=== PATIENT | female | born 1980 | race Caucasian/White ===

== ENCOUNTER 2016-05-17 19:58 | Emergency (ER) | payer OTHER ==
[~2016-05-17] VITALS: Ht 157.5 cm; Wt 64.0 kg
[~2016-05-17 19:58] MED LIST: PRENAT PO
[2016-05-17 20:03] VITALS: Ht 157.5 cm; Wt 64.0 kg
--- NOTE | 2016-05-18 00:39 | ERD ---
ER Documentation Chief Complaint Date/Time DATE: 05/18/16 TIME: 00:37 Chief Complaint abscess left groin HPI 36 year old female presents with CC of vaginal itching and discharge x 1 week. Patient reports that the discharge and green and frothy in appearance. She denies pelvic pain, dysuria, hematuria, and fevers. In addition she reports a "bump" on her vagina that is painful to touch. She is sexually active with her spouse, she does not use condoms. She states that she had a vaginal delivery 5 months ago and is currently breast feeding. She has not tried any medications for relief of her symptoms. She denies Hx of diabetes. ROS All systems reviewed and are negative except as per history of present illness. Medications Home Meds Active Scripts Metronidazole* (Metrogel*) 0.75% -45 Gram Gel, 1 APPLIC TOP BID for 5 Days, #1 TUB Prov:aKity Mejía PA-C 05/18/16 Cephalexin* (Keflex*) 500 Mg Capsule, 500 MG PO QID for 7 Days, CAP Prov:Kaity Mejía PA-C 05/18/16 Reported Medications Multivit/Min/Fol Ac/Iron/Pren* ( S*) 1 Tab Tab, 1 TAB PO DAILY, TAB 12/25/15 Allergies Allergies: Coded Allergies: No Known Drug Allergy (Verified Allergy, Unknown, 12/25/12) PMhx/Soc Medical and Surgical Hx: pt denies Medical Hx, pt denies Surgical Hx History of Surgery: Yes (gall bladder removal) Anesthesia Reaction: No Hx Neurological Disorder: No Hx Respiratory Disorders: No Hx Cardiac Disorders: No Hx Psychiatric Problems: No Hx Miscellaneous Medical Probl: No Hx Alcohol Use: No Hx Substance Use: No Hx Tobacco Use: No Smoking Status: Never smoker Physical Exam Vitals Physical Exam GENERAL: Nontoxic appearing. No acute distress and nontoxic. LUNGS: CTAB. No accessory muscle use. No rhonchi, no crackles, no stridor. No signs or symptoms of respiratory distress. No accessory muscle use, no retractions. HEART: Regular rate and rhythm. No murmurs, clicks, rubs or gallops. ABDOMEN/PELVIS: no guarding. non-distended. Soft and nontender. No suprapubic or adnexal tenderness. : There is a firm and tender 2cm nodular area over posterior end of the labia majora, with mild fluctuance. No active discharge or bleeding. The vaginal canal has yellow mucoid discharge, the cervix is closed and there is yellow mucoid discharge from the os, there is no cervical motion tenderness or adnexal masses. Procedures/MDM Patient presented with two complaints, one of them being a painful nodular area her labia, on exam it appeared that the area she was describing is likely an early bartholin cyst. However, currently there area was firm with very mild fluctuance. It did not appear to be suitable for incision and drainage. I told her that I would be treated her with oral ABx, and that if it does not improve then she should follow-up with her OBGYN for possible placement of a word catheter. In addition to this complaint she also complain of diffuse vaginal discharge and pruritus. On exam she had think yellow mucoid discharge both in the vaginal canal and around the cervix. I took a sample of the discharge and sent it for a wet mount. In addition I did a gonorrhea and chlamydia culture. I treated the patient for bacterial vaginosis based on clinical presentation. I told her that if the results of the culture came back positive then I would call her to add an additional prescription. Since she is , I chose to treat her with topical Metronidazole. Wet Mount: no clue cells and no motile flagella (negative) G/C culture: negative On exam patient had no cervical motion tenderness. She denies dysuria and is not . She is afebrile and in NAD. I have low suspicion for PID, gonorrhea, chlamydia, syphilis, UTI, ectopic , ovarian torsion, and sepsis. Patient is stable for discharge and outpatient management. Advised to follow-up with PCP or OBGYN is 1-2 days. Departure Diagnosis: Primary Impression: Vaginal discharge Additional Impression: Vaginal pruritus Condition: Stable Kaity Mejía PA-C May 18, 2016 00:39
[2016-05-18] MEDS ORDERED: METGEL45 TOP (00:40)
[2016-05-18] MEDS ORDERED: CEPH-443 PO (00:40)
[2016-05-18 00:43] VITALS: BP 113/71; PULSE 81; RESP 18; TEMP 97.9
== END 2016-05-18 01:02 | disposition home or self-care (01) ==
LOC: FTE 19:58
DX: N89.8 Other specified noninflammatory disorders of vagina (principal); L29.2 Pruritus vulvae
CPT/HCPCS: 87070; 87210; Z7502; 99284

== ENCOUNTER 2017-10-02 08:14 | Day surgery (SDC) | END 2017-10-02 12:48 | disposition home or self-care (01) ==

== ENCOUNTER 2018-12-02 17:52 | Outpatient (CLI) | payer OTHER ==
[~2018-12-02] VITALS: Ht 162.6 cm; Wt 69.9 kg
[~2018-12-02 17:52] MED LIST changes: +PNV11TAB PO; -PRENAT PO
[2018-12-02 19:04] VITALS: BP 105/65; PULSE 81; RESP 18; Ht 162.6 cm; Wt 69.9 kg
== END 2018-12-02 21:35 | disposition home or self-care (01) ==
LOC: OBT 17:52 → L-D 17:55 → OBT 21:35
PROVIDERS: ATTEND Obstetrics & Gynecology
DX: O62.9 Abnormality of forces of labor, unspecified (principal); Z3A.29 29 weeks gestation of pregnancy
CPT/HCPCS: 76817; 76818; 81001; 81003; 87086; Z7500; G0463

== ENCOUNTER 2019-02-11 22:20 | Inpatient (IN) | payer OTHER ==
[~2019-02-11] VITALS: Ht 165.1 cm; Wt 72.4 kg
[2019-02-11 22:32] VITALS: BP 116/73; PULSE 90; RESP 18; Ht 165.1 cm; Wt 72.4 kg
[2019-02-12] MEDS ORDERED: LACTATED RINGER'S 1,000 ML IV PRN (01:18)
[2019-02-12] MEDS ORDERED: LACTATED RINGER'S 1,000 ML IV SCH (01:18)
[2019-02-12] MEDS ORDERED: OXYTOCIN 30 UNITS/LR 500 ML IV PRN ×3 (01:30→13:00)
[2019-02-12] MEDS ORDERED: IBUPROFEN 600 MG TAB PO PRN (01:30)
[2019-02-12] MEDS ORDERED: BUTORPHANOL 2 MG INJ IV PRN (01:30)
[2019-02-12] MEDS ORDERED: METHYLERGONOVINE 0.2 MG INJ IM PRN ×3 (01:30→13:00)
[2019-02-12] MEDS ORDERED: MISOPROSTOL 200 MCG TAB PR PRN ×3 (01:30→13:00)
[2019-02-12] MEDS ORDERED: OXYTOCIN 30 UNITS/LR 500 ML IV SCH ×3 (01:30→09:30)
[2019-02-12] MEDS ORDERED: MINERAL OIL LIGHT 10 ML VIAL TOP PRN (01:30)
[2019-02-12] MEDS ORDERED: LIDOCAINE 1% (MPF) 30 ML INJ INJ PRN (01:30)
[2019-02-12] MEDS ORDERED: CARBOPROST 250 MCG INJ IM PRN ×3 (01:30→13:00)
[2019-02-12] MEDS ORDERED: FENTAnyl 2MCG/ML-ROPIV 0.2% 100 ML ONE (05:45)
[2019-02-12] MEDS ORDERED: NALOXONE (0.4 MG/ML) INJ IV PRN (06:00)
[2019-02-12] MEDS ORDERED: ONDANSETRON 4 MG INJ IV PRN (06:00)
[2019-02-12] MEDS ORDERED: ACETAMINOPHEN 1000MG/100ML IV 100 ML IVPB ONE (06:00)
[2019-02-12] MEDS ORDERED: FENTAnyl 2MCG/ML-ROPIV 0.2% 100 ML BAG EPI SCH (06:00)
[2019-02-12] MEDS ORDERED: DIPHENHYDRAMINE 50 MG INJ IV PRN (06:00)
[2019-02-12] MEDS ORDERED: URSODIOL 300 MG CAP PO SCH (09:00)
[2019-02-12] MEDS ORDERED: DIPHENHYDRAMINE 25 MG CAP PO PRN (09:30)
[2019-02-12] MEDS ORDERED: ZOLPIDEM 5 MG TAB PO PRN ×2 (11:30→13:00)
[2019-02-12] MEDS ORDERED: WITCH HAZEL/GLYCERIN PAD PR PRN ×2 (11:30→13:00)
[2019-02-12] MEDS ORDERED: LANOLIN HPA 1 PKT TOP PRN ×2 (11:30→13:00)
[2019-02-12] MEDS ORDERED: OXYCODONE/ASPIRIN (4.88/325) TAB PO PRN ×4 (11:30→13:00)
[2019-02-12] MEDS ORDERED: BENZOCAINE 20% 56 ML SPRAY TOP PRN ×2 (11:30→13:00)
[2019-02-12] MEDS: IBUPROFEN 600 MG TAB PO SCH ×3 (12:00→23:48)
[2019-02-12 12:35] VITALS: BP 112/55; PULSE 72; RESP 18
[2019-02-12 16:03] VITALS: BP 111/60; PULSE 67; RESP 18
[2019-02-12] MEDS ORDERED: IBUPROFEN 600 MG TAB PO SCH (18:00)
[2019-02-12 19:50] VITALS: BP 117/66; PULSE 64; RESP 19
[2019-02-12] MEDS ORDERED: SENNA/DOCUSATE NA (8.6MG/50MG) TAB PO SCH (21:00)
[2019-02-12] MEDS: SENNA/DOCUSATE NA (8.6MG/50MG) TAB PO SCH (21:20)
[2019-02-13 03:25] VITALS: BP 107/61; PULSE 71; RESP 19
[2019-02-13] MEDS: IBUPROFEN 600 MG TAB PO SCH ×4 (05:19→23:39)
[2019-02-13 07:30] VITALS: BP 116/61; PULSE 86; RESP 18
[2019-02-13] MEDS: SENNA/DOCUSATE NA (8.6MG/50MG) TAB PO SCH ×2 (09:47→21:23)
[2019-02-13 16:00] VITALS: BP 118/73; PULSE 77; RESP 18
[2019-02-13 20:45] VITALS: BP 129/66; PULSE 72; RESP 18
[2019-02-14 03:50] VITALS: BP 128/64; PULSE 63; RESP 17
[2019-02-14] MEDS: IBUPROFEN 600 MG TAB PO SCH ×2 (05:43→12:28)
[2019-02-14 08:15] VITALS: BP 129/80; PULSE 77; RESP 18
[2019-02-14] MEDS: SENNA/DOCUSATE NA (8.6MG/50MG) TAB PO SCH (08:31)
[2019-02-14] MEDS ORDERED: DIPHTH/TET/ACEL PERTUSS (ADULT) 0.5 ML VIAL IM* ONE (09:00)
== END 2019-02-14 15:04 | disposition home or self-care (01) | DRG 807 ==
LOC: OBT 22:20 → L-D 22:22 → OBT 02-12 00:40 → L-D 02-12 00:40 → MS1 02-12 12:23
PROVIDERS: ADMIT Obstetrics & Gynecology; ATTEND Obstetrics & Gynecology
PROC: 10E0XZZ Delivery of Products of Conception, External Approach (ICD-10-PCS; principal; 2019-02-12)
PROC: 4A1HXCZ Monitoring of Products of Conception, Cardiac Rate, External Approach (ICD-10-PCS; 2019-02-12)
DX: O69.1XX0 Labor and delivery complicated by cord around neck, with compression, not applicable or unspecified (principal); Z37.0 Single live birth; Z3A.40 40 weeks gestation of pregnancy
CPT/HCPCS: 62322; 84112; 85025; 85610; 85730; 86592; 86850; 86900; 86901; 87340; 90715; G0463; J0131; J2405; J2590; J3010; J7120